=== PATIENT | female | born 1955 | race Two or more races ===

== ENCOUNTER 2017-09-13 09:44 | Outpatient (CLI) | payer OTHER | END 2017-09-13 09:50 | disposition home or self-care (01) | LOC: MRI 09:44 | DX: D33.3 Benign neoplasm of cranial nerves (principal) | CPT/HCPCS: 70553; A9579; 70552 ==

== ENCOUNTER 2017-09-13 09:53 | Outpatient (CLI) | payer OTHER | END 2017-09-13 09:54 | disposition home or self-care (01) | LOC: MAMO-SONO 09:53 | DX: Z12.31 Encounter for screening mammogram for malignant neoplasm of breast (principal); Z87.898 Personal history of other specified conditions; N63.10 Unspecified lump in the right breast, unspecified quadrant; N63.20 Unspecified lump in the left breast, unspecified quadrant | CPT/HCPCS: 70552 ==

== ENCOUNTER → 2017-09-13 | Outpatient (CLI) | payer OTHER | END | disposition home or self-care (01) | LOC: LAB 12:09 | DX: D33.3 Benign neoplasm of cranial nerves (principal); Z51.81 Encounter for therapeutic drug level monitoring ==

== ENCOUNTER 2018-01-24 11:28 | Outpatient (CLI) | payer OTHER | END 2018-01-24 11:33 | disposition home or self-care (01) | LOC: LAB 11:28 | DX: N39.0 Urinary tract infection, site not specified (principal) ==

== ENCOUNTER → 2018-01-28 | Outpatient (CLI) | payer OTHER | END | disposition home or self-care (01) | LOC: MAMO-SONO 07:45 → SONOGRAMA 07:53 | DX: N39.0 Urinary tract infection, site not specified (principal); Z85.528 Personal history of other malignant neoplasm of kidney ==

== ENCOUNTER 2018-07-02 07:41 | Emergency (ER) | payer OTHER ==
[~2018-07-02] VITALS: Ht 157.5 cm; Wt 94.8 kg
[2018-07-02] MEDS ORDERED: METFORMIN HCL500 MG (08:04)
[2018-07-02] MEDS ORDERED: IRBESARTAN-HCT1 EAC1 (08:05)
[2018-07-02] MEDS ORDERED: VERAPAMIL HCL40 MG (08:05)
[2018-07-02] MEDS ORDERED: SYNTHROID150 MCG (08:06)
[2018-07-02] MEDS ORDERED: SIMVASTATIN10 MG (08:06)
[2018-07-02] MEDS ORDERED: NEURONTIN800 MG (08:06)
== END 2018-07-02 18:56 | disposition home or self-care (01) ==
LOC: ER 07:41
DX: K57.30 Diverticulosis of large intestine without perforation or abscess without bleeding (principal); R10.32 Left lower quadrant pain

== ENCOUNTER 2018-10-27 09:58 | Emergency (ER) | payer OTHER ==
[~2018-10-27] VITALS: Ht 157.5 cm; Wt 93.9 kg
[~2018-10-27 09:58] MED LIST: IRBESARTAN-HCT1 EAC1; METFORMIN HCL500 MG; NEURONTIN800 MG; SIMVASTATIN10 MG; SYNTHROID150 MCG; VERAPAMIL HCL40 MG
[2018-10-27] MEDS ORDERED: SAVELLA25 MG (10:09)
== END 2018-10-27 18:26 | disposition home or self-care (01) ==
LOC: ER 09:58
DX: K57.30 Diverticulosis of large intestine without perforation or abscess without bleeding (principal); N39.0 Urinary tract infection, site not specified; I72.2 Aneurysm of renal artery

== ENCOUNTER 2019-01-13 08:47 | Outpatient (CLI) | payer OTHER ==
[~2019-01-13 08:47] MED LIST changes: +SAVELLA25 MG
== END 2019-01-13 08:49 | disposition home or self-care (01) ==
LOC: SONOGRAMA 08:47
DX: R10.2 Pelvic and perineal pain (principal)

== ENCOUNTER 2019-01-15 08:03 | Outpatient (CLI) | payer OTHER | END 2019-01-15 15:00 | disposition home or self-care (01) | LOC: LAB 08:03 | DX: E03.8 Other specified hypothyroidism (principal); I10 Essential (primary) hypertension; E11.9 Type 2 diabetes mellitus without complications; E55.9 Vitamin D deficiency, unspecified; M32.10 Systemic lupus erythematosus, organ or system involvement unspecified; M33.20 Polymyositis, organ involvement unspecified; N39.0 Urinary tract infection, site not specified; M10.09 Idiopathic gout, multiple sites; M05.89 Other rheumatoid arthritis with rheumatoid factor of multiple sites ==

== ENCOUNTER → 2019-01-15 | Outpatient (CLI) | payer OTHER | END | disposition home or self-care (01) | LOC: NUCLEAR 09:30 | DX: M05.79 Rheumatoid arthritis with rheumatoid factor of multiple sites without organ or systems involvement (principal); M87.059 Idiopathic aseptic necrosis of unspecified femur | CPT/HCPCS: 78315; A9503 ==

== ENCOUNTER → 2020-03-24 | Outpatient (CLI) | payer OTHER | END | disposition home or self-care (01) | LOC: RAD 08:34 → SONOGRAMA 08:45 → RAD 08:45 | PROVIDERS: ATTEND Urology | DX: C64.2 Malignant neoplasm of left kidney, except renal pelvis (principal); Z85.528 Personal history of other malignant neoplasm of kidney; M25.561 Pain in right knee; M25.562 Pain in left knee | CPT/HCPCS: 73721 ==

== ENCOUNTER 2021-06-03 08:50 | Outpatient (CLI) | payer OTHER | END 2021-06-03 09:00 | disposition home or self-care (01) | LOC: NUCLEAR 08:50 | PROVIDERS: ATTEND Internal Medicine Rheumatology | DX: I70.90 Unspecified atherosclerosis (principal); I70.91 Generalized atherosclerosis; I82.1 Thrombophlebitis migrans; I87.2 Venous insufficiency (chronic) (peripheral) ==

== ENCOUNTER → 2021-06-16 08:16 | Outpatient (CLI) | payer OTHER | END | disposition home or self-care (01) | LOC: NUCLEAR 08:00 | PROVIDERS: ATTEND Internal Medicine Rheumatology | DX: I70.90 Unspecified atherosclerosis (principal); I70.91 Generalized atherosclerosis; I82.1 Thrombophlebitis migrans; I73.9 Peripheral vascular disease, unspecified ==

== ENCOUNTER 2021-06-16 08:59 | Outpatient (CLI) | payer OTHER | END 2021-06-16 09:11 | disposition home or self-care (01) | LOC: MRI 08:59 → RAD 09:15 → MAMO-SONO 09:15 | PROVIDERS: ATTEND Psychiatry & Neurology Neurology | DX: M54.2 Cervicalgia (principal); Z85.528 Personal history of other malignant neoplasm of kidney; Z12.31 Encounter for screening mammogram for malignant neoplasm of breast; N64.89 Other specified disorders of breast | CPT/HCPCS: 70544; 70551 ==

== ENCOUNTER → 2021-10-13 10:44 | Outpatient (CLI) | payer OTHER ==
[~2021-10-13 10:44] MED LIST changes: +GLYBURIDE5 MG PO; +INTESTINEX680 M1 PO
== END | disposition home or self-care (01) ==
LOC: LAB 10:44
PROVIDERS: ATTEND Radiology Diagnostic Radiology
DX: R10.2 Pelvic and perineal pain (principal)

== ENCOUNTER 2021-10-18 10:54 | Emergency (ER) | payer OTHER ==
[~2021-10-18] VITALS: Ht 157.5 cm; Wt 93.4 kg
[~2021-10-18 10:54] MED LIST changes: -GLYBURIDE5 MG PO; -INTESTINEX680 M1 PO
[2021-10-18] MEDS ORDERED: GLYBURIDE5 MG PO (11:17)
[2021-10-18] MEDS ORDERED: INTESTINEX680 M1 PO (11:17)
== END 2021-10-18 17:16 | disposition home or self-care (01) ==
LOC: ER 10:54
DX: K57.32 Diverticulitis of large intestine without perforation or abscess without bleeding (principal)

== ENCOUNTER → 2021-12-09 09:08 | Outpatient (CLI) | payer OTHER ==
[~2021-12-09 09:08] MED LIST changes: +GLYBURIDE5 MG PO; +INTESTINEX680 M1 PO
== END | disposition home or self-care (01) ==
LOC: LAB 11-29 08:14
PROVIDERS: ATTEND Obstetrics & Gynecology Obstetrics
DX: E55.9 Vitamin D deficiency, unspecified (principal); D51.9 Vitamin B12 deficiency anemia, unspecified; E11.9 Type 2 diabetes mellitus without complications; E03.8 Other specified hypothyroidism; D50.9 Iron deficiency anemia, unspecified; N39.0 Urinary tract infection, site not specified; E16.2 Hypoglycemia, unspecified; E78.2 Mixed hyperlipidemia

== ENCOUNTER 2021-12-09 12:35 | Outpatient (CLI) | payer OTHER | END 2021-12-09 12:39 | disposition home or self-care (01) | LOC: SONOGRAMA 12:35 | PROVIDERS: ATTEND Obstetrics & Gynecology Obstetrics | DX: R10.2 Pelvic and perineal pain (principal) ==

== ENCOUNTER 2021-12-12 08:38 | Outpatient (CLI) | payer OTHER | END 2021-12-12 08:46 | disposition home or self-care (01) | LOC: MRI 08:38 | PROVIDERS: ATTEND Obstetrics & Gynecology Obstetrics | DX: R10.2 Pelvic and perineal pain (principal); D25.9 Leiomyoma of uterus, unspecified | CPT/HCPCS: 72197; Q9965; 72196 ==

== ENCOUNTER 2022-08-14 07:08 | Outpatient (CLI) | payer OTHER | END 2022-08-14 07:22 | disposition home or self-care (01) | LOC: MAMO-SONO 07:08 | PROVIDERS: ATTEND Obstetrics & Gynecology Obstetrics | DX: Z12.31 Encounter for screening mammogram for malignant neoplasm of breast (principal); N63.0 Unspecified lump in unspecified breast; N64.0 Fissure and fistula of nipple; M54.17 Radiculopathy, lumbosacral region; M51.26 Other intervertebral disc displacement, lumbar region; R20.2 Paresthesia of skin | CPT/HCPCS: 72148 ==

== ENCOUNTER 2023-12-04 10:38 | Outpatient (CLI) | payer OTHER | END 2023-12-04 10:41 | disposition home or self-care (01) | LOC: MAMO-SONO 10:38 | PROVIDERS: ATTEND Obstetrics & Gynecology Obstetrics | DX: C64.2 Malignant neoplasm of left kidney, except renal pelvis (principal); M75.121 Complete rotator cuff tear or rupture of right shoulder, not specified as traumatic; Z12.31 Encounter for screening mammogram for malignant neoplasm of breast | CPT/HCPCS: 73218 ==

== ENCOUNTER 2024-11-04 13:40 | Outpatient (CLI) | payer OTHER | END 2024-11-04 13:52 | disposition home or self-care (01) | LOC: RAD 13:40 | PROVIDERS: ATTEND Internal Medicine Rheumatology | DX: M15.0 Primary generalized (osteo)arthritis (principal); M05.29 Rheumatoid vasculitis with rheumatoid arthritis of multiple sites; M54.16 Radiculopathy, lumbar region; M54.17 Radiculopathy, lumbosacral region; M54.12 Radiculopathy, cervical region; M75.121 Complete rotator cuff tear or rupture of right shoulder, not specified as traumatic | CPT/HCPCS: 73221 ==

== ENCOUNTER 2024-12-30 10:53 | Outpatient (CLI) | payer OTHER | END 2024-12-30 10:54 | disposition home or self-care (01) | LOC: NUCLEAR 10:53 | PROVIDERS: ATTEND Obstetrics & Gynecology Obstetrics | DX: M81.0 Age-related osteoporosis without current pathological fracture (principal) ==

== ENCOUNTER 2024-12-30 15:22 | Outpatient (CLI) | payer OTHER | END 2024-12-30 15:26 | disposition home or self-care (01) | LOC: MAMO-SONO 15:22 | PROVIDERS: ATTEND Obstetrics & Gynecology Obstetrics | DX: R10.2 Pelvic and perineal pain (principal); Z12.31 Encounter for screening mammogram for malignant neoplasm of breast ==